=== PATIENT | male | born 1975 | race Caucasian/White ===

== ENCOUNTER → 2018-02-14 | Day surgery (SDC) | payer OTHER ==
[~2018-02-14] VITALS: Ht 167.6 cm; Wt 90.7 kg
--- NOTE | 2018-02-14 12:34 | Operative Report ---
Operative/Inv Procedure Report Surgery Date: 02/14/18 Name of Procedure: 1. Anal examination under anesthesia 2. Excision perianal hidradenitis Pre-Operative Diagnosis: Perirectal fistula Post-Operative Diagnosis: Perianal hidradenitis Estimated Blood Loss: scant Surgeon/Forming Machine Tender: Maurisio Corrigan MD Anesthesia: local monitored anesthesi Specimens: Skin and soft tissue perineum Operative Indication: 42-year-old male with chronic, intermittent purulent drainage from perianal abscess. Operative/Procedure Note Note: After consent is brought to the operating room laid prone. Sedation was obtained his perianal tissues were prepped and draped. Digital rectal examination was unrevealing. Perianal nerve block was then performed cocktail local anesthesia. Rigid proctoscopy was performed and no significant internal hemorrhoidal disease was seen. There was no prominent crypt. In the anterior midline, perineal tissues, there was a firm and fluctuant area that allowed expression of purulent material. There is a tiny sinus in the skin which was probed with a lacrimal duct probe. We could not identify any significant tracking towards the anus. There was however a long tract towards the scrotum and deep tissues. We then infiltrated this area with local anesthesia an ellipse of skin was made overlying the tract and soft tissue abscess. This inflammatory process was then circumferentially dissected with cautery and passed off the field. Inspection of the deeper tissues revealed a tiny sinus through which a lacrimal duct probe was placed. It appeared to be blind ending. I curetted the tract. The wound was then irrigated with saline and closed in single layer of 3-0 nylon sutures. Bacitracin ointment was applied and sterile dressings applied. CC: Ori PASTOR,Marga
== END ==
LOC: STS 01:35
DX: L73.2 Hidradenitis suppurativa (principal); F17.200 Nicotine dependence, unspecified, uncomplicated
CPT/HCPCS: 88305; J2250